=== PATIENT | male | born 1960 | race Caucasian/White ===

== ENCOUNTER 2021-11-10 15:16 | Emergency (ER) | payer OTHER, SELFPAY ==
[2021-11-10 15:17] VITALS: BP 95/56; PULSE 52; RESP 16; TEMP 36.6; O2SAT 95; BMI 27.3
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
[2021-11-10 16:06] VITALS: RESP 18; O2SAT 98
[2021-11-10] MEDS: sodium chloride 0.9% 1,000 ML 999 ML IV (16:06)
[2021-11-10] MEDS: HYDROmorphone 1 mg/mL INJ 1 mL IVP (16:06)
[2021-11-10] MEDS: ondansetron 2 mg/ML SDV 2 mL 4 MG IVP (16:08)
[2021-11-10 16:12] LABS: Basophils # 0.1 10^3/uL (0.0-0.1); Basophils % 0.7 %; Eosinophils # 0.1 10^3/uL (0.0-0.8); Eosinophils % 1.3 %; Hematocrit 43.9 % (42.0-52.0); Hemoglobin 15.4 g/dL (11.7-16.6); Lymphocytes % 24.3 %; Mean Corpuscular HGB Conc 35.1 g/dL (30.0-36.0); Mean Corpuscular Hemoglobin 31.8 pg (28.0-34.0); Mean Corpuscular Volume 90.5 fl (80-94); Monocytes # 0.4 10^3/uL (0.2-0.9); Monocytes % 4.5 %; Neutrophils # 5.59 10^3/uL (1.8-7.7); Neutrophils % 68.7 %; Nucleated Red Blood Cells % 0 %; Platelet Count 305 10^3/cmm (130-400); Red Blood Count 4.85 10^6/uL (4.1-5.3); Red Cell Distribution Width 11.9 % (12.1-15.1); White Blood Count 8.2 10^3/uL (4.0-10.0)
[2021-11-10 16:16] LABS: Alanine Aminotransferase 33 U/L (0-41); Albumin Level 4.3 g/dL (3.5-5.2); Alkaline Phosphatase 66 IU/L (40-130); Anion Gap 16.6 (5-19); Aspartate Amino Transferase 41 U/L (0-40); Blood Urea Nitrogen 13 mg/dL (6-20); Carbon Dioxide 23 mmol/L (22-29); Chloride 102 mmol/L (98-107); Globulin 2.5 g/dL (1.3-4.6); Glomerular Filtration Rate 68.5 mL/min (90-130); Glucose 133 mg/dL (65-115); Osmolality Calculated 288 mOsm/kg (285-295); Potassium 3.6 mmol/L (3.5-5.1); Sodium 138 mmol/L (136-145); Total Bilirubin 0.6 mg/dL (0.15-1.2); Total Protein 6.8 g/dL (6.6-8.7)
[2021-11-10] MEDS: iohexol 350 mg/mL 100 mL Btl IV (16:49)
[2021-11-10 16:55] VITALS: BP 126/74; PULSE 53; RESP 16; O2SAT 94
[2021-11-10 17:25] VITALS: BP 116/76; PULSE 51; RESP 16; O2SAT 94
[2021-11-10] MEDS: fentaNYL 50 mcg/mL INJ 2mL 100 MCG IVP (18:18)
[2021-11-10 18:43] VITALS: BP 116/76; PULSE 51; RESP 16; O2SAT 94
== END 2021-11-10 18:46 ==
PROVIDERS: Physician Assistant; Emergency Provider Emergency Medicine
DX: S22.41XA Multiple fractures of ribs, right side, initial encounter for closed fracture (principal); S42.101A Fracture of unspecified part of scapula, right shoulder, initial encounter for closed fracture; J93.9 Pneumothorax, unspecified; V20.4XXA Motorcycle driver injured in collision with pedestrian or animal in traffic accident, initial encounter
CPT/HCPCS: 70450; 71045; 71260; 72125; 72128; 72131; 73030; 74177; 80053; 85025; 96361; 96374; 96375; 99284; 99291; 99292; J1170; J2405; J3010; J7030; Q9967

== ENCOUNTER → 2021-11-22 11:14 | Outpatient (BNVA) | payer OTHER, SELFPAY | PROVIDERS: PCP Family Medicine; Referring Provider Physician Assistant Medical; Visit Provider Specialist | DX: S42.111A Displaced fracture of body of scapula, right shoulder, initial encounter for closed fracture (principal); X58.XXXA Exposure to other specified factors, initial encounter | CPT/HCPCS: 73030 ==

== ENCOUNTER 2021-11-22 16:21 | Outpatient (CLI) | payer OTHER, SELFPAY | END 2021-11-22 16:22 | disposition home or self-care (01) | LOC: SPT 16:21 | PROVIDERS: PCP Family Medicine; Visit Provider Specialist | DX: Z46.89 Encounter for fitting and adjustment of other specified devices (principal); S42.111D Displaced fracture of body of scapula, right shoulder, subsequent encounter for fracture with routine healing; X58.XXXD Exposure to other specified factors, subsequent encounter | CPT/HCPCS: L3670 ==

== ENCOUNTER → 2021-12-27 13:21 | Outpatient (BNVA) | payer OTHER, SELFPAY | PROVIDERS: PCP Family Medicine; Visit Provider Specialist | DX: S42.111A Displaced fracture of body of scapula, right shoulder, initial encounter for closed fracture (principal); X58.XXXA Exposure to other specified factors, initial encounter | CPT/HCPCS: 73030 ==

== ENCOUNTER → 2022-01-24 10:10 | Outpatient (BNVA) | payer OTHER, SELFPAY | PROVIDERS: PCP Family Medicine; Visit Provider Specialist | DX: S42.111D Displaced fracture of body of scapula, right shoulder, subsequent encounter for fracture with routine healing (principal); V29.9XXD Motorcycle rider (driver) (passenger) injured in unspecified traffic accident, subsequent encounter | CPT/HCPCS: 73010 ==

== ENCOUNTER → 2022-02-21 10:55 | Outpatient (BNVA) | payer OTHER, SELFPAY | PROVIDERS: PCP Family Medicine; Visit Provider Specialist | DX: S42.111D Displaced fracture of body of scapula, right shoulder, subsequent encounter for fracture with routine healing (principal); S22.41XD Multiple fractures of ribs, right side, subsequent encounter for fracture with routine healing; V29.99XD Rider (driver) (passenger) of other motorcycle injured in unspecified traffic accident, subsequent encounter | CPT/HCPCS: 73010 ==

== ENCOUNTER 2022-10-17 22:48 | Emergency (ER) | payer OTHER, SELFPAY ==
[2022-10-17 22:53] VITALS: BP 146/94; PULSE 52; RESP 14; TEMP 36.8; O2SAT 97
--- NOTE | 2022-10-17 23:00 | ED_ITS ---
HPI - Skin/Abscess/Foreign Bdy General: Chief complaint: Needlestick/Injury/Exposure Stated complaint: needle stick Time Seen by Provider: 10/17/22 22:56 History of Present Illness: 62-year-old male patient comes in today for complaints of injury to the right hand. Patient was cleaning a trash can and accidentally stuck himself with an exposed needle. Patient was cleaning a isolation room. Patient was referred to the ER for postexposure needlestick prophylaxis protocol. Patient appears nontoxic. Patient reported they cleaned the site well prior to coming to the ER. Patient has a small lesion to the thenar aspect of the right hand. Review of Systems General: Reports: 10 or more systems reviewed and unremarkable except in HPI and below Resp: Denies: dyspnea GI: Denies: abdominal pain : Denies: difficulty urinating Musc: Denies: neck pain Skin/Breast: Reports: new lesions (Puncture wound) PFS ED PFSH: Social History Smoking and tobacco status: never smoked Physical Exam Const: COMMON NORMALS: alert HENMT: COMMON NORMALS: normocephalic HEAD & SCALP: normocephalic Neck/C-Spine: COMMON NORMALS: full ROM Resp: COMMON NORMALS: normal respiratory effort and clear to auscultation bilaterally AUSCULTATION: clear to auscultation bilaterally Cardio: COMMON NORMALS: regular rate and regular rhythm RATE: regular rate RHYTHM: regular rhythm GI: COMMON NORMALS: Soft to palpation and non-tender PALPATION: Yes Soft to palpation Extremity: RIGHT UPPER EXTREMITY: Yes hand & digits (Small puncture wound palmar hand) Neuro: SENSORIUM/ORIENTATION: Yes alert Skin: TRAUMA: puncture (Superficial right palmar hand) Course Vital Signs: Vital signs: Vital Signs Temperature 98.2 F 10/17/22 22:53 Pulse Rate 52 L 10/17/22 22:53 Respiratory Rate 14 10/17/22 22:53 Blood Pressure 146/94 10/17/22 22:53 Pulse Oximetry 97 10/17/22 22:53 Oxygen Delivery Me thod Room Air 10/17/22 22:53 MDM - Skin/Abscess/Foreign Bdy Medicial Decision Making Patient comes in for needlestick to the right hand. On exam he has a super ficial puncture wound to the right palmar hand. Normal range of motion. No foreign body. Differential diagnosis puncture wound, need for prophylaxis tetanus, need for Pep therapy for HIV. Patient was placed on Truvada and dolutegravir for Pep therapy. Tetanus was up-to-date. Patient was given Augmentin 875 twice a day for 7 days for prophylactic antibiotic therapy. Lab was collected. Patient was recommended to follow-up with human resources and employee health for further evaluation and treatment. Patient stated understanding and agreed to plan. Lab Data 10/17/22 23:43 10/17/22 23:43 Laboratory Results WBC 5.6 10^3/uL (4.0-10.0) 10/17/22 23:43 RBC 4.42 10^6/uL (4.1-5.3) 10/17/22 23:43 Hgb 14.0 g/dL (11.7-16.6) 10/17/22 23:43 Hct 40.3 % (42.0-52.0) L 10/17/22 23:43 MCV 91.2 fl (80-94) 10/17/22 23:43 MCH 31.7 pg (28.0-34.0) 10/17/22 23:43 MCHC 34.7 g/dL (30.0-36.0) 10/17/22 23:43 RDW 12.4 % (12.1-15.1) 10/17/22 23:43 Plt Count 241 10^3/cmm (130-400) 10/17/22 23:43 MPV 8.7 fL (7.4-10.4) 10/17/22 23:43 Neut % (Auto) 55.3 % 10/17/22 23:43 Lymph % (Auto) 34.4 % 10/17/22 23:43 Elmore % (Auto) 5.8 % 10/17/22 23:43 Eos % (Auto) 3.4 % 10/17/22 23:43 Baso % (Auto) 0.9 % 10/17/22 23:43 Neut # (Auto) 3.08 10^3/uL (1.8-7.7) 10/17/22 23:43 Lymph # (Auto) 1.9 10^3/uL (0.8-4.8) 10/17/22 23:43 Elmore # (Auto) 0.3 10^3/uL (0.2-0.9) 10/17/22 23:43 Eos # (Auto) 0.2 10^3/uL (0.0-0.8) 10/17/22 23:43 Baso # (Auto) 0.1 10^3/uL (0.0-0.1) 10/17/22 23:43 Nucleated RBC % (auto) 0 % 10/17/22 23:43 Nucleated RBCs # 0.0 /100WBC 10/17/22 23:43 Discharge Plan Discharge Patient Disposition: Home Clinical Impression: Needle stick injury Condition: Stable Prescriptions: New amoxicillin-pot clavulanate 875-125 mg tablet 1 tab PO BID Qty: 14 0RF Truvada 200-300 mg tablet 1 tab PO DAILY Qty: 28 0RF dolutegravir 50 mg tablet 50 mg PO DAILY Qty: 28 0RF Discharge Orders: Discharge ED (Routine); Ordered 10/17/22 Ordered By: Boni Blackmon Referrals: Demarco Marshall MD [Primary Care Provider] - Patient Instructions: Blood/Body Fluid Exposure - Occupational, Needle Stick Injuries (ED) Activity Restrictions/Additional Instructions: Take medications as directed. Drink plenty of water with medicine. Follow-up with employee health for further instructions. Return to ED for new concerns. Coding Level of Care Code ED Repair Coil Winder for Guru Summers
[2022-10-17] MEDS: amoxicillin-clav 875-125 mg Tablet 1 TAB PO (23:43)
[2022-10-17 23:49] LABS: Basophils # 0.1 10^3/uL (0.0-0.1); Basophils % 0.9 %; Eosinophils # 0.2 10^3/uL (0.0-0.8); Eosinophils % 3.4 %; Hematocrit 40.3 % (42.0-52.0); Lymphocytes # 1.9 10^3/uL (0.8-4.8); Lymphocytes % 34.4 %; Mean Corpuscular HGB Conc 34.7 g/dL (30.0-36.0); Mean Corpuscular Hemoglobin 31.7 pg (28.0-34.0); Mean Corpuscular Volume 91.2 fl (80-94); Mean Platelet Volume 8.7 fL (7.4-10.4); Monocytes # 0.3 10^3/uL (0.2-0.9); Monocytes % 5.8 %; Neutrophils # 3.08 10^3/uL (1.8-7.7); Neutrophils % 55.3 %; Nucleated Red Blood Cells % 0 %; Platelet Count 241 10^3/cmm (130-400); Red Blood Count 4.42 10^6/uL (4.1-5.3); Red Cell Distribution Width 12.4 % (12.1-15.1); White Blood Count 5.6 10^3/uL (4.0-10.0)
[2022-10-18 00:15] LABS: Alanine Aminotransferase 30 U/L (0-41); Alkaline Phosphatase 76 U/L (40-130); Anion Gap 13.7 (5-19); Aspartate Amino Transferase 26 U/L (0-40); Blood Urea Nitrogen 10 mg/dL (8-23); Calcium 9.2 mg/dL (8.5-10.5); Carbon Dioxide 25 mmol/L (22-29); Chloride 105 mmol/L (98-107); Globulin 2.5 g/dL (1.3-4.6); Glomerular Filtration Rate 98.6 mL/min (90-130); Glucose 88 mg/dL (65-115); Osmolality Calculated 288 mOsm/kg (285-295); Potassium 3.7 mmol/L (3.5-5.1); Sodium 140 mmol/L (136-145); Total Bilirubin 0.3 mg/dL (0.15-1.2); Total Protein 6.5 g/dL (6.6-8.7)
[2022-10-18 00:27] LABS: HIV 1 & 2 Antibody Non-Reactive (Non-Reactiv); HIV 1 & 2 Antigen Non-Reactive (Non-Reactiv)
[2022-10-18 00:28] LABS: Hepatitis A Antibody IgM Non-Reactive (Nonreactive); Hepatitis B Core IgM Non-Reactive (Nonreactive); Hepatitis B Surface Antigen Non-Reactive (Nonreactive); Hepatitis C Virus Antibody Non-Reactive (Nonreactive)
== END 2022-10-17 23:48 | disposition home or self-care (01) ==
PROVIDERS: Emergency Provider Nurse Practitioner Family; PCP Family Medicine
DX: S61.431A Puncture wound without foreign body of right hand, initial encounter (principal); W46.0XXA Contact with hypodermic needle, initial encounter; Y92.230 Patient room in hospital as the place of occurrence of the external cause; Y99.0 Civilian activity done for income or pay
CPT/HCPCS: 80053; 80074; 85025; 87806; 99283

== ENCOUNTER 2024-12-15 08:26 | Outpatient (CLI) | payer OTHER, SELFPAY ==
--- NOTE | 2024-12-15 08:32 | MR_ITS ---
WS: [id number] MRI LEFT KNEE NONCONTRAST TECHNIQUE: Axial PD, coronal PD fat sat, coronal PD, sagittal PD, and sagittal PD fat-sat images obtained. CLINICAL INFORMATION: INTERNAL DERANGEMENT OF LEFT KNEE COMPARISON: None. FINDINGS: Distal quadriceps and patella tendons are intact. Prepatellar soft tissue edema. Hypertrophic patella. ACL and PCL are intact. Moderate to advanced tricompartmental arthritis. Normal lateral meniscus. Complex tear involving the medial meniscus with bucket-handle type tear with displaced intra-articular meniscal fragment along the intercondylar notch. Displaced fragment measures 7 mm. Peripheral extrusion of the medial meniscus. Blunting of the medial meniscus. Moderate chondromalacia patella. No subchondral edema. Moderate suprapatellar effusion. Medial and lateral patellar retinaculum appear intact. Small lobulated popliteal cyst. Edema in the popliteal fossa. Grade 1-2 injury of the medial collateral ligament which appears intact. Normal lateral collateral ligament. Normal fibula head. Subchondral cystic changes in the anterior medial femoral condyle. MR/MR knee LT con* [id number] IMPRESSION: 1. Normal ACL and PCL. 2. Complex bucket-handle type tear involving the medial meniscus with displace d intra-articular meniscal fragment along the intercondylar notch measuring 7 m m. Peripheral extrusion of the medial meniscus. 3. Moderate suprapatellar effusion. 4. Grade III chondromalacia patella. 5. Grade 1-2 injury medial collateral ligament. Normal LCL. 6. Tiny lobulated popliteal cyst. 7. Moderate to advanced tricompartment arthritis. Outbridge grading: grade IV: full-thickness cartilage loss with underlying bone reactive changes
== END 2024-12-15 08:27 | disposition home or self-care (01) ==
LOC: RAD 08:28
PROVIDERS: PCP Family Medicine; Visit Provider Family Medicine
DX: S83.212A Bucket-handle tear of medial meniscus, current injury, left knee, initial encounter (principal); M94.262 Chondromalacia, left knee; M17.11 Unilateral primary osteoarthritis, right knee; M71.22 Synovial cyst of popliteal space [Baker], left knee
CPT/HCPCS: 73721

== ENCOUNTER → 2024-12-23 10:08 | Outpatient (BNVA) | payer OTHER, SELFPAY | PROVIDERS: PCP Family Medicine; Visit Provider Specialist | DX: S83.212A Bucket-handle tear of medial meniscus, current injury, left knee, initial encounter (principal); X58.XXXA Exposure to other specified factors, initial encounter | CPT/HCPCS: 36415; 73560; 73565; 80053; 81001; 85025 ==

== ENCOUNTER → 2025-01-07 09:54 | Day surgery (SDC) | payer OTHER, SELFPAY ==
[2025-01-07 11:13] VITALS: BMI 29.9
--- NOTE | 2025-01-07 11:39 | XR_ITS ---
WS: [id number] Exam: XR tibia fibula LT 2V [id number] Date/Time of Exam: 01/07/2025 11:42 AM Reason For Exam: Injury lower tibia with swelling No fracture noted. Articular relationships are intact. Normal soft tissues. XR/XR tibia fibula LT 2V [id number] IMPRESSION: 1. Negative tibia and fibula.
--- NOTE | 2025-01-07 12:50 | PM.MISC ---
Miscellaneous Note Purpose of Documentation: Cancellation of surgery Note: Patient surgery was canceled secondary to a contusion on the anterior medial aspect of the operative leg. This was hot, red, and swollen. There was no obvious evidence of cellulitis. There was swelling up at least two thirds of his leg with a tense calf but no evidence of DVT. X-ray of the tib-fib was obtained to assure there was no fracture.
== END ==
PROVIDERS: PCP Family Medicine; Visit Provider Specialist
DX: Z53.8 Procedure and treatment not carried out for other reasons (principal)
CPT/HCPCS: 73590; J1100; J2405; J2704; J3010; J9999

== ENCOUNTER 2025-02-04 08:00 | Day surgery (SDC) | payer OTHER, SELFPAY ==
[2025-02-04] VITALS (9 sets, daily range): BP systolic 139–150; BP diastolic 85–98; PULSE 52–65; RESP 11–24; TEMP 36.2–36.7; O2SAT 92–97; BMI 29.9
--- NOTE | 2025-02-04 08:18 | P.HPUD_ITS ---
Surgery/Procedure H&P Update DATE OF PROCEDURE: February 04, 2025 DATE H&P PERFORMED: 01/22/25 H&P UPDATE INFORMATION: I have reviewed H&P completed within last 30 days, I have examined patient prior to procedure, No changes to prior documentation, H&P is in [facility] EMR on date indicated and Risks and benefits of the procedure reviewed PRIMARY INDICATION FOR PROCEDURE: Noncontrast MRI of the left knee was obtained at [facility] on December 15, 2024, and this was interpreted by Dr. Joe Schmitz. Findings on this study include intact distal quadriceps and patellar tendons. There is a hypertrophic patella. Anterior and posterior cruciate ligaments are intact as are the medial and lateral ligaments. There is moderate to advanced tricompartmental osteoarthritis. The lateral meniscus is normal with a complex tear of the medial meniscus of a bucket-handle type. There is also moderate chondromalacia and a grade 1-2 injury of the medial collateral ligament. Overall findings are consistent with normal anterior and posterior cruciate ligaments, complex bucket-handle type tear involving the medial meniscus with a displaced intra- articular meniscal fragment along the intercondylar notch as well as peripheral extrusion of the medial meniscus. There is a moderate suprapatellar effusion. There is grade 1-2 injury of the medial collateral ligament with a normal lateral collateral ligament and grade II chondromalacia patella with moderate to advanced tricompartmental arthritis and an out bridge grading of 4. PLANNED PROCEDURE: Operation Date: 02/04/25 13:40 Proposed Procedures p Meniscectomy Arthroscopy Knee Arthroscopic partial Medial Meniscectomy(Left) - Annette Hernandez MD Related Problem List Diagnoses 1. Bucket-handle tear of medial meniscus of left knee as current injury, subsequent encounter: Qualifiers: Tear current or old: current Encounter type: subsequent encounter
[2025-02-04] MEDS: acetaminophen 1,000 MG/100 ML PIGGYBACK 400 MG IV (08:27)
--- NOTE | 2025-02-04 08:50 | ANES.PREANE2 ---
Pre-Anesthetic Assessment Height/Weight: Height 1.88 m Weight 105.687 kg Temp Pulse Resp BP Pulse Ox O2 Del Method 98.1 F 60 18 150/98 95 Room Air 02/04/25 08:17 02/04/25 08:17 02/04/25 08:17 02/04/25 08:17 02/04/25 08:17 02/04/25 08:21 Operation Date: 02/04/25 13:40 Proposed Procedures p Meniscectomy Arthroscopy Knee Arthroscopic partial Medial Meniscectomy(Left) - Annette Hernandez MD Familial anesthetic complications: None Was Beta Vero taken within 24 hours: N/A Was Clonidine taken within 24 hours: N/A Last intake: Intake Last Liquid Date 02/03/25 Last Liquid Time 23:30 Last Solid Date 02/03/25 Last Solid Time 23:30 Social No alcohol and No tobacco Exam alert, oriented x 3, clear to auscultation bilaterally and regular rate & rhythm Airway Mallampati: Class II Dentition: chipped Anesthetic Plan ASA status: 1 Anesthesia: General Risk of > 500 ml blood loss (7ml/kg in children): No Medications/Allergies Home Medications ?Medication ?Instructions ?Recorded ?Confirmed ?Last Taken ?Type No Known Home Medications 01/06/25 02/03/25 Unknown History Allergies Allergy/AdvReac Type Severity Reaction Status Date / Time meperidine (From Demerol) Allergy Intermediate faint Verified 02/03/25 15:16 Current Medications Generic Name Dose Route Start Last Admin Trade Name Freq PRN Reason Stop Dose Admin Sodium Chloride 1,000 mls @ 30 mls/hr 02/04/25 08:15 02/04/25 08:29 Sodium Chloride 0.9% IV 02/05/25 08:14 30 mls/hr .Q24H ALAN Administration PFSH Anesthesia Social History Smoking and tobacco/nicotine status: unknown if used tobacco/nicotine
[2025-02-04] MEDS: ceFAZolin 2,000 mg SDV 2000 MG IVP (08:58)
[2025-02-04] MEDS: ROPivacaine 0.5% SDV 30 mL 150 MG INJECTION (09:35)
[2025-02-04] MEDS: morphine 4 mg/mL SDV 1 mL 8 MG XX (09:35)
--- NOTE | 2025-02-04 10:35 | P.OP_ITS ---
Operative Report Date of procedure: February 04, 2025 Pre-op diagnosis: Left knee complex medial meniscus tear with degenerative osteoarthritic change Post-op diagnosis: Left knee complex medial meniscus tear, inner rim lateral meniscus tear, chondromalacia lateral tibial plateau medial femoral condyle and patella consistent with degenerative osteoarthritic change Post-op findings: As above. Procedure done: Left arthroscopic knee surgery with partial medial and lateral meniscectomy with chondroplasty patella, lateral tibial plateau, and medial femoral condyle Implants: None Specimens removed/disposition: None Pathology: None Surgeon: Annette Hernandez MD Blind Stitch Machine Operator: None Anesthesia: General (Per LMA, ASA 1) Estimated blood loss (mL): 5 Tourniquet time (min): 46 (At 250 mmHg) IV fluids (mL): 1,200 Urine output (mL): 0 (No Mistry) Complications: None Findings: As noted above Brief History: This 64-year-old gentleman presented with complaints of left knee pain. On the initial surgical date of 01/07/2025, his surgery was canceled secondary to a cellulitis over the anterior aspect of his leg. This has now resolved after he was placed on oral antibiotics. He presents today for left knee arthroscopy with partial medial meniscectomy and debridement. Prior to surgery, risk and complications of the surgery were discussed. Consents had been previously signed and these were reviewed with him. He was given further opportunity to have questions answered on the morning of surgery. Procedure: Patient was brought to the operating theater and after undergoing adequate general anesthesia per LMA, ASA 1, the patient's left lower extremity was prepped and draped in usual fashion utilizing DuraPrep. A tourniquet was placed high on the leg prior to prepping and draping. The tourniquet was elevated prior to commencement of the surgical procedure to 250 mmHg. Total tourniquet time was 46 minutes. Elevation followed prepping and exsanguination. Prior to commencement of the surgical procedure, a surgical pause was performed. At the time of the surgical pause, we identified the site and side of surgery. We also confirm the patient's identity and appropriate and timely administration of preoperative antibiotics. Preoperative surgical markings were also visualized at this time. Standard arthroscopic portals were utilized including superolateral, inferomedial, and inferolateral portals. The examination commenced in the suprapatellar pouch area where the patient was noted to have chondromalacia of the significant degree on the undersurface of the patella. The arthroscope was then passed in the medial compartment where there was noted to be tearing in the posterior half of the medial meniscus. There was a fragment flipped from the posterior horn into the notch area. This was able to be displaced into the joint. The meniscus was palpated and was otherwise intact. The arthroscope was then passed across the notch area where anterior cruciate ligament was visualized and found to be intact. The scope was passed into the lateral compartment with the knee in a [id number] position. Lateral meniscus was noted to have inner rim tearing. It was palpated and found not to be displaceable into the joint. Therefore, the tear was removed with a combination of intra-articular shaver and the intra-articular heat wand. Once the lateral meniscus had been thus prepared, it was again palpated and found to be intact and not displaceable into the knee joint. Chondroplasty of the lateral tibial plateau was performed at that time. Scope was then returned to the medial compartment where the meniscal tear was removed. This was somewhat difficult and that it was in the posterior corner and flipped into the notch, but we were able to completely remove the tear. Following removal, the meniscus was palpated and found to be not displaceable into the knee joint. Chondroplasty was performed on the medial tibial plateau and medial femoral condyle. The arthroscope was then returned to the patellofemoral joint where a chondroplasty was performed of the undersurface of the patella. This chondroplasty involved use of the intra-articular shaver as well as the heat wand. Once the patella had been addressed, the scope was passed back through the knee compartments to evaluate for other abnormalities. Finding none, attention was directed to closure. The knee was copiously irrigated and suctioned dry. Following this, each portal was closed with a simple suture followed by Dermabond and OpSite. Additionally, the knee was injected with 20 mL of half percent ropivacaine and 8 mg of morphine. Additional 10 mL of ropivacaine was placed about the portals. Sterile dressing was placed consisting of the Dermabond and OpSite followed by the Figueroa wrap. Patient was returned to Recovery Room in satisfactory condition where he will be discharged home to follow-up in the office as scheduled. There were no complications and no specimens. Related Problem List Diagnoses 1. Bucket-handle tear of medial meniscus of left knee as current injury, subsequent encounter: 2. Other tear of lateral meniscus of left knee as current injury, initial encounter: 3. Post-traumatic osteoarthritis of left knee:
--- NOTE | 2025-02-04 11:40 | ANE.PACU2 ---
Inpatient post-anesthesia follow up: Airway intact: Yes Vital signs: Temperature 97.1 F Pulse Rate 52 Respiratory Rate 17 Blood Pressure 148/87 Pulse Oximetry 97 Oxygen Delivery Me thod Room Air Oxygen Flow Rate 6 Fraction of Inspir ed Oxygen Hydration adequate: Yes Nausea and vomiting: No Pain level: 1 Mental status: Baseline
== END 2025-02-04 11:42 | disposition home or self-care (01) ==
PROVIDERS: PCP Family Medicine; Visit Provider Specialist
PROC: (CPT 29880; principal; 2025-02-04 13:30)
DX: M17.12 Unilateral primary osteoarthritis, left knee (principal); S83.242A Other tear of medial meniscus, current injury, left knee, initial encounter; S83.282A Other tear of lateral meniscus, current injury, left knee, initial encounter; X58.XXXA Exposure to other specified factors, initial encounter; M94.262 Chondromalacia, left knee
CPT/HCPCS: 29880; J0131; J0690; J1100; J2250; J2270; J2405; J2704; J2795; J3010; J7030; J9999